=== PATIENT | female | born 1995 | race Caucasian/White ===

== ENCOUNTER 2018-12-10 00:35 | Emergency (ER) | payer OTHER, MEDICAID, SELFPAY ==
[2018-12-10] VITALS (42 sets, daily range): BP systolic 83–136; BP diastolic 49–113; PULSE 81–126; RESP 20; O2SAT 89–100
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
[2018-12-10 00:54] LABS: Abs Immature Grans 0.04 k/cumm (0.0-0.09); Absolute Basophil Count 0.01 k/cumm (0.0-0.2); Absolute Eosinophil Count 0.02 k/cumm (0.0-0.7); Absolute Lymphocyte Count 3.51 k/cumm (1.2-3.4); Absolute Neutrophil Count 3.74 k/cumm (1.2-6.7); Basophils % 0.1; Eosinophils % 0.3; HCT 44.3 % (36.0-46.0); HGB 15.4 g/dL (12.0-15.5); Immature Grans % 0.5; Lymphocytes % 44.9; Mean Corp. HGB Concentration 34.8 g/dL (32.0-36.0); Mean Corpuscular Hemoglobin 30.9 pg (27.0-33.0); Mean Platelet Volume 9.8 fL (8.0-11.0); Monocytes % 6.4; Neutrophils % 47.8; Platelet Count 392 x1000/uL (130-400); RBC 4.98 m/cumm (4.00-5.20); White Blood Cell Count 7.82 k/cumm (4.4-10.8)
[2018-12-10 01:07] LABS: ALT 25 U/L (14-59); AST 24 U/L (15-37); Albumin 4.6 g/dL (3.4-5.0); Alkaline Phosphatase 57 U/L (46-116); Anion Gap 12.5 mmol/L (3-11); BUN 9 mg/dL (7-18); Bilirubin, Total 0.3 mg/dL (0.2-1.0); CO2 24.5 mmol/L (21.0-32.0); CREATININE 0.72 mg/dL (0.55-1.02); Calcium 9.1 mg/dL (8.5-10.1); Chloride 109 mmol/L (98-107); ETHANOL BLOOD 266.4 mg/dL (<3); Glucose 106 mg/dL (70-100); Potassium 3.6 mmol/L (3.5-5.1); Sodium 146 mmol/L (136-145); Total Protein 8.1 g/dL (6.4-8.2)
[2018-12-10 01:08] LABS: PTT Activated 24.7 sec (21.0-31.4); Prothrombin Time 9.7 sec (9.3-11.0)
[2018-12-10] MEDS: Haloperidol 5 MG/ML VIAL (01:10)
[2018-12-10] MEDS: LORazepam 2 MG/ML VIAL (01:10)
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
[2018-12-10 01:35] LABS: HCG Qual (Serum) Negative
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
[2018-12-10] MEDS: Normal Saline 1,000 ML 150 ML IV (03:20)
--- NOTE | 2018-12-10 05:34 | NUR.NOTE ---
Nursing Note: more awake, parents will take her home.
== END 2018-12-10 05:19 | disposition other institution (70) ==
LOC: ER 04:06
PROVIDERS: Emergency Provider Emergency Medicine
DX: R51 Headache (principal); R07.89 Other chest pain; S01.01XA Laceration without foreign body of scalp, initial encounter; F10.120 Alcohol abuse with intoxication, uncomplicated; V47.5XXA Car driver injured in collision with fixed or stationary object in traffic accident, initial encounter
CPT/HCPCS: 12001; 36415; 71250; 80053; 96360; 96361; 96372; 99284; 70450; 72125; 74176; 80320; 84703; 85025; 85610; 85730; J1630; J2060

== ENCOUNTER 2025-01-15 03:30 | Outpatient (CLI) | payer MEDICAID, SELFPAY ==
[2025-01-15 13:06] LABS: Abs Immature Grans 0.06 10^3/uL (0.0-0.06); HCT 35.9 % (36.0-46.0); HGB 12.0 g/dL (11.2-15.7); Immature Grans % 0.4 %; MCH 29.7 pg (27.0-33.0); MCHC 33.4 % (32.0-36.0); MCV 89 fL (80-95); MPV 10.6 fL (8.0-11.0); Platelet Count 302 10^3/uL (130-400); RBC 4.04 10^6/uL (3.93-5.22); RDW 12.3 % (11.7-14.6); RDW-SD 39.9 fL; WBC 13.42 10^3/uL (4.4-10.8)
[2025-01-16 11:28] LABS: Rubella IgG Ab (UVM) Positive (See Note)
[2025-01-16 19:18] LABS: Hepatitis C Ab w Rflx HCV PCR Negative (Negative)
[2025-01-16 19:24] LABS: HIV-1/2 Ag & Ab Screen Negative (Negative)
[2025-01-17 11:08] LABS: HSV Type 2 Ab, IgG Positive (Negative)
[2025-01-17 11:39] LABS: Lab Add On Test DONE
[2025-01-17 17:12] LABS: Syphilis IgG w/Reflex Nonreactive (Nonreactive)
== END 2025-01-15 03:31 | disposition home or self-care (01) ==
LOC: LBO 03:30
PROVIDERS: Visit Provider Advanced Practice Midwife
DX: Z34.91 Encounter for supervision of normal pregnancy, unspecified, first trimester (principal)
CPT/HCPCS: 36415; 81220; 81222; 86787; 86803; 86850; 86900; 86901; 87340; 87389; 85025; 86695; 86696; 86762; 86777; 86778; 86780

== ENCOUNTER 2025-01-15 10:43 | Outpatient (REF) | payer MEDICAID, SELFPAY ==
[2025-01-15 13:37] LABS: Cannabinoids THC Positive (Negative); Fentanyl Scr w/Rflx to Conf, U Negative (Negative)
[2025-01-16 13:26] LABS: Chlamydia Result Negative (Negative); GC Result Negative (Negative)
== END 2025-01-15 10:44 | disposition home or self-care (01) ==
LOC: LBN 10:43
PROVIDERS: Visit Provider Advanced Practice Midwife
DX: Z34.91 Encounter for supervision of normal pregnancy, unspecified, first trimester (principal)
CPT/HCPCS: 80307; 80348; 87491; 87591; 87086